=== PATIENT | female | born 1985 | race African-American/Black ===

== ENCOUNTER 2018-03-20 08:30 | Outpatient (CLI) | payer OTHER ==
[2018-03-20] MEDS ORDERED: Gadobenate Dimeglumine 529 MG/1 ML (20ML VIAL) ONE (09:50)
== END 2018-03-20 08:31 | disposition home or self-care (01) ==
LOC: BICMRI 08:30
PROVIDERS: ATTEND Psychiatry & Neurology Neurology
DX: G35 Multiple sclerosis (principal)
CPT/HCPCS: 70553; 72156; 72157; A9579